=== PATIENT | female | born 1985 | race Caucasian/White ===

== ENCOUNTER 2020-08-12 03:46 | Inpatient (IN) | payer BC ==
[2020-08-12] VITALS (47 sets, daily range): BP systolic 95–148; BP diastolic 50–99; PULSE 67–149; TEMP 97.5–100.5
[~2020-08-12] VITALS: Ht 167.6 cm; Wt 75.0 kg
--- NOTE | 2020-08-12 03:50 | NUR ---
G2L0 at 40 weeks and 2 days arrives to unit ambulatory after laboring at home with energy control officer Roseanne Keller for "27 hours". Spontaneous rupture of membranes at 1530 with clear fluid. Pt denies any problems this . Pt did not receive rhogam this because FOB also has documented negative blood type. Pt did not do glucose tolerance test this and has not been checking blood sugars. Per Roseanne she has been following a low carb diet. Pt reports feeling good movement and is visibly uncomfortable. Oriented to room, bed in low and locked position, call light within reach. Plan of care reviewed with patient and spouse. US and toco explained and applied. Vital signs obtained. Admission assessment started. SVE 5-6/90/-3, vertex position
--- NOTE | 2020-08-12 04:25 | NUR ---
18G IV started in right forearm with 1 attempt. Admission labs obtained off IV start. Lactated ringers infusing to gravity. Consents reviewed and signed with patient and spouse.
[2020-08-12 04:37] LABS: HEMOGLOBIN 12.4 g/dl (12.5-16.0); MEAN CELL VOLUME 92 fl (80.0-100.0); MEAN CORPUSCULAR HEMOGLOBIN 32 pg (27.0-31.0); MEAN CORPUSCULAR HGB CONC 35 g/dl (33.0-37.0); MEAN PLATELET VOLUME 10.1 fl (7.4-10.4); PLATELET COUNT 253 K/mm3 (130-400); RED BLOOD COUNT 3.84 M/mm3 (4.10-5.30); REDCELL DISTRIBUTION WIDTH-CV 12.6 % (11.5-14.5)
[2020-08-12 04:44] LABS: HEMATOCRIT 35.2 % (37.0-47.0)
[2020-08-12] MEDS ORDERED: PRENATAL TABLET PO (04:44)
--- NOTE | 2020-08-12 04:46 | NUR ---
0430 - Basim Licona CRNA at bedside. Epidural procedure, risks, and benefits explained, pt verbalized understanding. Pt positioned to sitting on edge of bed. 0445 - Difficulty tracing FHR due to maternal positioning. 0446 - Test dose by MARÍA Coyle at this time. Pt denies any adverse reactions. 0452 - Pt positioned to wedge left for comfort. Educated on safety precautions. Bed in low and locked position, call light within reach. See anesthesia record.
[2020-08-12 05:16] LABS: BAND 1 % (0-10); LYMPHOCYTE 5 % (20.0-51.0); NEUTROPHILS 95 % (42.0-75.2)
[2020-08-12 05:18] LABS: PLATELET ESTIMATE NORMAL (NORMAL)
--- NOTE | 2020-08-12 05:45 | NUR ---
Echavarria catheter placed at this time to dependent drainage. Clear, yellow urine returned. Secured to leg with statlock. SVE /-3.
--- NOTE | 2020-08-12 08:30 | NUR ---
Roles here for am TIMUR ha/100/-2 per her exam. Discusses potential of starting antibiotics for prolonged rupture of membranes if patient becomes febrile. Patient verbalizes understanding. Note patient hot to touch, but axillary temp 97.7 and oral temp 98.2. Will continute to monitor.
--- NOTE | 2020-08-12 08:38 | NUR ---
Placed in right lateral with peanut ball following SVE.
--- NOTE | 2020-08-12 10:15 | NUR ---
Note patient still hot to touch. Oral temp 99.1 @ this time. Discussed potential of starting antibiotics with prolonged rupture of membranes, and her temperature climbing. Patient verbalizes she would like to stay away from antibiotics unlesss absolutely necessary. Discussed her skin is hot to touch, and she is likely febrile, but could hold off until reading on thermometer is febrile. Discussed increased risks for baby david infection if antibiotic therapy is not begun.
--- NOTE | 2020-08-12 10:50 | NUR ---
Pit start @ 2mU/min at this time with patient consent.
--- NOTE | 2020-08-12 11:13 | NUR ---
Repositioned from right lateral with peanut ball to modified welcher's. Patient in supine position, with hips legs lowered on foot of bed in comparison to upper body.
--- NOTE | 2020-08-12 11:30 | NUR ---
Repositioned to left lateral with peanut ball.
--- NOTE | 2020-08-12 12:09 | NUR ---
SVE ant lip/0 station. Instructed patient to push through next couple of contractions to see if ant lip will reduce. Remaining cervix reduces with pushing efforts through two contractions. 1215: C/0. notified this senior copywriter will begin pushing process. 1220: Echavarria catheter removed.
--- NOTE | 2020-08-12 12:51 | NUR ---
Roles in-house. Stops in to watch patient pushing efforts through one contraction. States she will remain in-house, call for delivery.
--- NOTE | 2020-08-12 14:00 | NUR ---
1400: here for delivery per this travel writer's request. Giovanna Cordero, RN, nursery nurse, also present for delivery. 1407: After just under two hours of expulsive pushing efforts, spontaneous vaginal delivery of head by . 1407: Spontaneous vaginal delivery of male infant by . Infant to mother's abdomen. Delayed cord clamping per patient request. Nursery nurse dries and stimulates infant on mother's abdomen. 1411: Cord doubly clamped by . Father of baby cuts cord with instruction from . 1411: Spontaneous vaginal delivery of placenta by . Pit bolus begun @ 333mU/min immediately following. 1412: Red Miko catheter used by to empty patient bladder. Estimated 100mL urine return noted. then repairs 2nd degree perineal laceration, right side wall tear with 2-[address]-1. Patient tolerates well, remains comfortable with epidural block. 1415: Epidural pump turned off.
--- NOTE | 2020-08-12 16:20 | NUR ---
Up on bedpan for attempt to void. Note patient right leg still very numb, unable to lift it off of bed.
--- NOTE | 2020-08-12 16:35 | NUR ---
Ada care provided. Mesh underwear, ada pad, ice pack applied. Patient unable to spontaneously void. Allowed to put own clothes back on. Epidural catheter removed with catheter tip intact. Transferred to [facility] per wheelchair at this time, as noted, left leg still too heavy to use to ambulate. Instructed to call if she feels she needs to get out of bed. Verbalizes understanding.
[2020-08-13 00:15] VITALS: BP 117/55; PULSE 98; TEMP 98.5
[2020-08-13 07:20] VITALS: BP 94/49; PULSE 78; TEMP 98
[2020-08-13 17:30] VITALS: BP 111/61; PULSE 78; TEMP 97.5
--- NOTE | 2020-08-13 18:14 | NUR ---
1745 ELEVATED BP NOTED AT THIS TIME, PT DENIES HEADACHE, BLURRED OR SPOTS IN VISION, OR PAIN. PITTING EDEMA NOTED AT THIS TIME, CHANGE SINCE PRIOR ASSESSMENT. WILL REASSESS BP IN 30MIN
[2020-08-13 20:15] VITALS: BP 110/57; PULSE 72; TEMP 97.8
[2020-08-14 07:36] VITALS: BP 105/61; PULSE 66; TEMP 97.7
[2020-08-14] MEDS ORDERED: MOTRIN 600600 MG/TAB PO (08:15)
== END 2020-08-14 11:00 | disposition home or self-care (01) | DRG 807 ==
LOC: LDRO 03:46 → LDR 04:13 → OB 04:13
PROVIDERS: ADMIT Obstetrics & Gynecology
PROC: 10E0XZZ Delivery of Products of Conception, External Approach (ICD-10-PCS; principal; 2020-08-12)
PROC: 0KQM0ZZ Repair Perineum Muscle, Open Approach (ICD-10-PCS; 2020-08-12)
PROC: 0UQMXZZ Repair Vulva, External Approach (ICD-10-PCS; 2020-08-12)
DX: O48.0 Post-term pregnancy (principal); Z37.0 Single live birth; O70.1 Second degree perineal laceration during delivery; Z3A.40 40 weeks gestation of pregnancy
CPT/HCPCS: J2590; J7120